=== PATIENT | female | born 1945 | race Caucasian/White ===

== ENCOUNTER → 2017-01-29 | Outpatient (CLI) | payer OTHER ==
[~2017-01-29] MED LIST: ATROPINE SULFATE 0.1 MG/ML 5ML SYR ONE; DOBUTamine HCL 12.5 MG/ML 20 ML VIAL ONE; METOPROLOL TARTRATE 1 MG/ML VIAL ONE; PERFLUTREN LIPID MICROSPHERE (DEFINITY) IV ONE
--- NOTE | 2017-01-29 12:04 | NUR ---
CPL: DOBUTAMINE STRESS ECHO COMPLETED WITH DR FARRAR AT BEDSIDE, THR REACHED AND PATIENT TOLERATED WELL, DOBUTAMINE TITRATED STARTING AT 10 MCG/KG/MIN AND MAX REACHED OF 50 MCG/KG/MIN, LOPRESSOR 5 MG IV GIVEN AT 1149 FOR HR OF 130 AND B/P OF 125/47
--- NOTE | 2017-01-29 16:02 | DOBUTAMINE ECHO ---
*NOTICE TO RECEIVING REPUBLICAN AGENCY This information is strictly Confidential and protected under [place] law. [place] law prohibits you from making any further disclosure of this information unless further disclosure is expressly permitted by the written consent of the person to whom it pertains or is authorized by law. A general authorization for the release of medical or other information is not sufficient for this purpose. Hospital accepts no responsibility if the information is made available to any other person, INCLUDING THE PATIENT. Interpretation Summary * Name: LESIA KHAN Study Date: 01/29/2017 09:20 AM BP: 126/61 mmHg * Patient Location: [facility] HR: 60 * : 1945 (M/d/yyyy) Gender: Female Height: 61 in * Age: 71 yrs Ethnicity: [place] Weight: 152 lb * Ordering Physician: Jc Sharpe * Referring Physician: Jc Sharpe * Performed By: Mariama Das RCS * * Reason For Study: OK, Dyspnea * BSA: 1.7 m2 * -- Conclusions -- * Nonischemic dobutamine stress echocardiogram. * No arrhythmias. * Normal HR and BP response to dobutamine infusion. * At rest, normal LV chamber size with borderline concentric LVH. * Normal LV systolic function, EF 60-65%. * No segmental left ventricular wall motion abnormalities are noted. * Grade II diastolic dysfunction. * Aortic valve sclerosis mild, without significant aortic valvular stenosis. * Moderate mitral annular calcification with significant focal posterior calcification. * Mild left atrial enlargement. Procedure Details * DOBUTAMINE ECHO, CPT#05931 * ECHO COLOR FLOW, CPT #[id number] * ECHO DOPPLER, CPT #[id number] * A contrast injection of Definity was performed to improve assessment of LV function. * Contrast was injected into an intravenous site in the right arm. * One vial of Definity ultrasound contrast was diluted in normal saline to a total volume of 10 ml. A total of '5' ml of solution was administered during imaging. * Lot # [id number] of Definity utilized for procedure. * Expiration date EB. * The attending nurse who injected the contrast agent was Tan Mackay RN. Left Ventricle * The left ventricle is normal in size. * There is borderline concentric left ventricular hypertrophy. * Ejection Fraction = 60-65%. * Left ventricular systolic function is normal. * No segmental left ventricular wall motion abnormalities are noted. * Resting wall motion: Normal. Stress wall motion: Appropriate increase in Left ventricular systolic function and decrease in cavity size. No stress induced segmental wall motion abnormalities. Right Ventricle * The right ventricular cavity size is normal (basal dimension <4.2 cm in right ventricular apical 4-chamber view). * The right ventricular systolic function is normal as assessed by tricuspid annular plane systolic excursion (TAPSE) (normal >1.5 cm). Atria * The left atrium is mildly dilated. * Right atrial size is normal. * No ASD detected; PFO is not assessed. Mitral Valve * There is moderate mitral annular calcification. * There is no mitral valve stenosis. * There is mild mitral regurgitation. Tricuspid Valve * The tricuspid valve is normal in structure and function. Aortic Valve * The aortic valve is trileaflet. * Aortic valve sclerosis mild, without significant aortic valvular stenosis. * There is no significant aortic regurgitation. Pulmonic Valve * The pulmonary valve is not well seen, but the Doppler examination is normal without significant regurgitation or stenosis. Great Vessels * The aortic root and proximal ascending aorta are normal sized. Pericardium * There is no pericardial effusion. Stress Parameters * Normal baseline electrocardiogram. * Stress ECG: No ST changes. No arrhythmias. * No arrhythmia were noted with stress. * The stress portion of this study was personally supervised by the undersigned interpreting physician. * Rest heart rate was '60' BPM. * Rest blood pressure was '126/61' * Maximum heart rate achieved was 130 bpm. * Maximum heart rate was 88 % of maximum age-predicted heart rate. * Maximum blood pressure was '150/49' * Maximum Dobutamine infusion rate was '50' mcg/kg/min. * A total of .5 mg of intravenous Atropine was used to supplement Dobutamine for heart rate response. * Dobutamine infusion was terminated due to achieving target heart rate * A total of 5 mg of IV Metoprolol was administered to reverse Dobutamine-induced tachycardia. * The patient did not exhibit any symptoms during drug infusion. * Normal blood pressure response to exercise. Left Ventricular Diastolic Function * Diastolic dysfunction, Grade II (pseudonormalization pattern). MMode 2D Measurements and Calculations IVSd 0.99 cm IVSs 1.4 cm LVIDd 4.1 cm LVIDs 2.7 cm LVPWd 1.0 cm LVPWs 1.3 cm IVS/LVPW 0.96 FS 33.5 % EDV(Teich) 73.8 ml ESV(Teich) 27.5 ml EF(Teich) 62.7 % EDV(cubed) 68.4 ml ESV(cubed) 20.1 ml EF(cubed) 70.6 % % IVS thick 43.0 % % LVPW thick 23.2 % LV mass(C)d 134.7 grams LV mass(C)dI 80.2 grams/m\S\2 LV mass(C)s 116.6 grams LV mass(C)sI 69.3 grams/m\S\2 SV(Teich) 46.3 ml SI(Teich) 27.5 ml/m\S\2 SV(cubed) 48.3 ml SI(cubed) 28.7 ml/m\S\2 Ao root diam 2.9 cm Ao root area 6.5 cm\S\2 ACS 1.7 cm LA dimension 4.2 cm asc Aorta Diam 2.6 cm LA/Ao 1.5 EDV(MOD-sp4) 58.0 ml ESV(MOD-sp4) 23.0 ml EF(MOD-sp4) 60.3 % EDV(MOD-sp2) 94.0 ml ESV(MOD-sp2) 46.0 ml EF(MOD-sp2) 51.1 % SV(MOD-sp4) 35.0 ml SI(MOD-sp4) 20.8 ml/m\S\2 SV(MOD-sp2) 48.0 ml SI(MOD-sp2) 28.6 ml/m\S\2 Doppler Measurements and Calculations MV E max sarai 102.7 cm/sec MV A max sarai 61.9 cm/sec MV E/A 1.7 MV P1/2t max sarai 102.2 cm/sec MV P1/2t 75.1 msec MVA(P1/2t) 2.9 cm\S\2 MV dec slope 398.6 cm/sec\S\2 MV dec time 0.25 sec Ao V2 max 105.5 cm/sec Ao max PG 4.4 mmHg Ao max PG (full) 1.8 mmHg LV V1 max PG 2.6 mmHg LV V1 max 80.8 cm/sec PA V2 max 68.2 cm/sec PA max PG 1.9 mmHg TR max sarai 176.8 cm/sec
== END | disposition home or self-care (01) ==
LOC: C.CPL 09:12
PROVIDERS: ATTEND Internal Medicine Cardiovascular Disease
DX: I25.2 Old myocardial infarction (principal); E78.5 Hyperlipidemia, unspecified; R06.09 Other forms of dyspnea

== ENCOUNTER 2018-07-19 10:08 | Inpatient (IN) ==
--- OUTSIDE RECORDS SUMMARY | 2018-07-19 10:10 | External Medical Summary | Continuity of Care Document ---
:1945 Author Name Eduardo Ortez Address Unavailable Unavailable , Care Team Providers Name Role Phone Aakash Ortez Unavailable [email or web address] Abdi Unavailable Unavailable Problems Active medical history not documented Allergies and Adverse Reactions Allergy history not documented Medications Medications not documented Procedures Procedures not documented Immunizations Immunizations not documented Plan of Treatment Planned Observations Planned Goals not documented Results No Known Results Results not documented
[2018-07-19] MEDS ORDERED: SODIUM CHLORIDE 0.9% 500 ML IV ONE (10:29)
[2018-07-19] MEDS ORDERED: ONDANSETRON INJ 2 MG/ML 2 ML VIAL IV STA (10:33)
[2018-07-19] MEDS ORDERED: FAMOTIDINE 20MG IV PUSH 20 MG/5 ML SYR IV STA (10:33)
[2018-07-19 10:43] LABS: Basophils # (auto) 0.02 K/uL (0-0.2); Basophils % (auto) 0.3 %; Hematocrit (blood only) 40.2 % (37-47); Hemoglobin 14.1 g/dL (12.0-16.0); Immature Granulocytes # (auto) 0.02 K/uL (0.00-0.02); Immature Granulocytes % (auto) 0.3 %; Lymphocytes # (auto) 0.65 K/uL (1.2-3.4); Lymphocytes % (auto) 8.5 %; Mean Corpuscular Hgb Conc 35.1 g/dL (32-36); Mean Corpuscular Volume 91.8 fL (80-100); Mean Platelet Volume 9.6 fL (7.4-10.4); Monocytes # (auto) 0.51 K/uL (0.11-0.59); Monocytes % (auto) 6.7 %; Neutrophils # (auto) 6.43 K/uL (1.4-6.5); Neutrophils % (auto) 84.2 %; Platelet Count 131 K/uL (130-400); RDW Coefficient of Variation 12.9 % (11.5-14.5); RDW Standard Deviation 43.2 fL (36.4-46.3); Red Blood Count 4.38 M/uL (4.2-5.4); White Blood Count 7.63 K/uL (4.8-10.8)
--- NOTE | 2018-07-19 10:58 | XRay Report ---
XR chest 1V portable CLINICAL HISTORY: 72 years-old Female presenting with Chest Pain, nausea vomiting and diarrhea. TECHNIQUE: Portable upright AP view of the chest was obtained. COMPARISON: None. FINDINGS: Atherosclerosis of the aortic arch. Cardiac silhouette normal in size. Mitral annular calcification n oted. Heterogeneous lung markings with relative radiolucency of the upper lobes. Mild hyperinflation. No focal lung opacity. No large effusion or pneumothorax. Osseous structures normal. Upper abdomen n ormal. IMPRESSION: 1. Findings suggest emphysema. No focal infiltrate to suggest pneumonia. Electronically signed by: Rusty Lutz M.D. 07/19/2018 10:57 AM
[2018-07-19 10:59] LABS: INR 1.2 (0.9-1.1); Prothrombin Time 11.8 Seconds (9.0-12.0)
[2018-07-19 11:02] LABS: Alanine Aminotransferase 33 U/L (12-78); Albumin Level 3.4 gm/dl (3.4-5.0); Aspartate Aminotransferase 44 U/L (15-37); BUN Creatinine Ratio 12.6 (10-20); Bilirubin Direct < 0.1 mg/dl (0-0.2); Blood Urea Nitrogen 16 mg/dl (7-18); Calcium 8.9 mg/dl (8.5-10.1); Carbon Dioxide 24 mmol/L (21-32); Chloride 98 mmol/L (98-107); Est GFR (African American) 48.6; Est GFR (Non-African American) 41.9; Glucose 115 mg/dl (70-99); Magnesium 1.4 mg/dl (1.8-2.4); Potassium 3.4 mmol/L (3.5-5.1); Sodium 130 mmol/L (136-145)
[2018-07-19 11:05] LABS: Albumin Globulin Ratio 0.8 (0.9-2); Alkaline Phosphatase 67 U/L (45-117); Bilirubin,Total 0.4 mg/dl (0.2-1); Globulin 4.2 gm/dl (2.5-4.0); Phosphorus 2.2 mg/dl (2.5-4.9); Total Protein 7.6 gm/dl (6.4-8.2); Troponin I 0.042 ng/ml (0-0.045)
[2018-07-19] MEDS ORDERED: POTASSIUM PHOS 3 MMOL/1 ML INFUSION IV STA (11:45)
[2018-07-19] MEDS ORDERED: POTASSIUM PHOSPHATE 6 MMOL in 0.9 % SODIUM CHLORIDE 100 ML IV ONE (12:00)
[2018-07-19] MEDS ORDERED: IOVERSOL 100ml IV PRN (12:32)
[2018-07-19 12:33] LABS: Appearance Urine Clear (Clear); Bacteria Urine Automated Negative (Negative); Bilirubin Urine Negative (Negative); Blood Urine Trace (Negative); Color Urine Yellow; Epithelial Cell Urine Auto 20-30 /lpf (0-5); Glucose Urine UA Negative (Negative); Ketones Urine Negative (Negative); Leukocyte Esterase Urine Negative (Negative); Nitrite Urine Negative (Negative); Protein Urine 1+ (Negative); RBC Urine Automated 0-4 /hpf (0-4); Urobilinogen Urine Negative (Negative)
--- NOTE | 2018-07-19 12:55 | CT Scan Report ---
ABDOMEN AND PELVIS CT WITH IV CONTRAST CT DOSE: 347.38 mGy.cm HISTORY: Acute abdominal pain with nausea and vomiting n/v/d, abd pain TECHNIQUE: Multiaxial CT images of the abdomen and pelvis were performed following the use of intrave nous contrast. A dose lowering technique was utilized adhering to the principles of ALARA. COMPARISON STUDY: Chest radiograph of same day. FINDINGS: Respiratory motion artifact limits evaluation of the lung bases. Subsegmental tree-in-bud nodules of the right middle lobe are suggestive of a nonspecific infectious or inflammatory bronchiolitis. No pn eumatosis or pneumoperitoneum. Imaged inferior cardiac chambers are unremarkable. Dense mitral annula r calcifications are noted. Gallbladder is unremarkable. Spleen, liver, pancreas and adrenal glands are unremarkable. Bilateral r enal cysts are noted measuring up to 1.4 cm on the left. Mild nonspecific right greater than left per inephric stranding. No renal or ureteral calculi or obstructive uropathy. Mild cortical scarring and thinning of the medial inferior pole right kidney. Mild wall thickening of the urinary bladder with m ild perivesicular stranding. Prior hysterectomy. No adnexal mass lesions. Mixed plaque formation of t he abdominal aorta without aneurysm. IVC is unremarkable. Nonspecific mildly enlarged periportal and precaval lymph nodes. Small hiatal hernia. No bowel obstruction or focal bowel wall thickening. Colonic diverticulosis with out acute diverticulitis. Terminal ileum and visualized appendix appear unremarkable. No ascites or m esenteric inflammation. Demineralized appearance of the bones. Multilevel facet arthrosis with spondy litic spurring. Levoscoliosis of the lumbar spine. Severe degenerative changes about the left hip. Be nign-appearing 11 mm lucent lesion with peripheral cortication about the right femoral neck. IMPRESSION: 1. Mild urinary bladder wall thickening with perivesicular stranding. Correlate with urinalysis to ex clude cystitis. 2. No bowel obstruction or focal bowel wall thickening. 3. Colonic diverticulosis without acute diverticulitis. 4. Small hiatal hernia. 5. Additional findings as above. Electronically signed by: Du Massey M.D. 07/19/2018 12:54 PM
[2018-07-19] MEDS ORDERED: POTASSIUM CHLORIDE PWD 20 MEQ PACK PO STA (13:06)
--- NOTE | 2018-07-19 13:41 | History & Physical Report ---
Date of Service July 19, 2018 Assessment & Plan (1) Metabolic encephalopathy: (2) Dehydration: (3) Weakness: This is a 72-year-old female who has a significant PMH of CAD, HTN, HLD, CKD stage III, hypothyroidism, COPD, osteoporosis, chronic low back pain who presents to [facility] secondary to joint aches, weakness, nausea, vomiting for 3 days. In ED pt CBC unremarkable except low normal plt 131, BMP significant for Na 130, K 3.4, Cr 1.26, phos 2.2 and mag 1.[address] abd/pelvis not significant for any acute abnormality, there was question of a mild urinary bladder wall thickening with perivesicular stranding but urine appears negative for infection In ED patient received IV fluid bolus, potassium chloride 40 M EQ, K-Phos, 2 g mag IV, IV Zofran and Pepcid Pt sx probably in setting of acute dehydration and symptomatic hyponatremia Cause of acute dehydration unknown as pt was in her normal state of health 3 days ago: ? viral illness, lyme/anaplasma, does not appear to be infection, no s/sx of sepsis admit to med/surg IVF NS with KCL 100cc/hr repeat bmp/mag at 6pm replace electrolytes as necessary check lyme/anaplasma titer, peripheral smear IV doxycyline 100mg bid empirically x 48hrs until initial lyme/anaplasma return urine culture pt/ot consulted (4) Acute hyponatremia: serum na 130 likely hypovolemic check urine osm, serum osm, urine na bmp at 1800 continue IVF 100cc/hr (5) Electrolyte abnormality: replace as necessary repleted in ED repeat mag, bmp at 1800 (6) CKD (chronic kidney disease) stage 3, GFR 30-59 ml/min: Baseline creatinine 1.2 BUN/creatinine 16 and 1.26 Repeat BMP at 1800 (7) CAD (coronary artery disease): No acute chest pain or shortness of breath Continue metoprolol, ASA Hold Praluent -daughter notes recent increase to 150 mg SQ [id number] 1 month ago (8) HTN (hypertension): Blood pressure stable Continue metoprolol but hold HCTZ (9) HLD (hyperlipidemia): Hold Praluent -daughter notes recent increase to 150 mg SQ [id number] 1 month ago (10) Hypothyroidism: 07/08 TSH was 5.62, T4 normal at 1.22 Continue levothyroxine (11) COPD (chronic obstructive pulmonary disease) with emphysema: No signs or symptoms of acute exacerbation Patient is not on any inhaled steroid or LABA/BENJI (12) Depression with anxiety: Continue Effexor and Xanax mood stable (13) DVT prophylaxis: Heparin SQ q12hr Disposition: to be determined, case management consulted Follow up: PCP Dr. Sharpe upon discharge Patient was seen and examined in collaboration with Dr. Serna, please see addendum History of Present Illness Chief Complaint: joint aches, n/v, abdominal pain x 3 days. Primary Care Provider: Kavita Sharpe, DO This is a 72-year-old female who has a significant PMH of CAD, HTN, HLD, CKD stage III, hypothyroidism, COPD, osteoporosis, chronic low back pain who presents to [facility] secondary to joint aches, weakness, nausea, vomiting for 3 days. Daughter at bedside. Symptoms started Wednesday after patient attended a picnic. She is otherwise been her normal state of health. Symptoms initially started with joint ache, fatigue, malaise, generalized weakness, nausea, emesis x2, generalized abdominal ache off-and-on. She had one episode of diarrhea yesterday. Symptoms persisted therefore daughter brought patient to ED for evaluation. No known sick contacts. She did not eat any bad food. Denies fever, chills, sweats but otherwise feels cold more than usual. Denies lightheadedness, dizziness, upper respiratory symptoms, cough, chest pain, shortness of breath, palpitations, hemoptysis, hematemesis, dysuria, increased urgency or frequency with urination, hematuria, melena, brando tochezia. Over the past 2 to 3 days her appetite has been poor with significantly decreased p.o. intake. She did not take any of her medications today. Never had anything like this in the past. [place] denies any known tick or insect bites. No rashes. Daughter also feels she has been more confused today. Allergies Allergy/AdvReac Type Severity Reaction Status Date / Time atorvastatin [From Lipitor] Allergy Rash Unverified 07/19/18 10:46 Cephalosporins Allergy Vomiting Unverified 07/19/18 10:46 meloxicam Allergy Rash Unverified 07/19/18 10:46 moxifloxacin [From Avelox] Allergy Rash Unverified 07/19/18 10:46 oxycodone Allergy Rash Unverified 07/19/18 10:46 pravastatin [From Pravachol] Allergy Muscle Pain Unverified 07/19/18 10:46 tramadol [From Ultram] Allergy Rash Unverified 07/19/18 10:46 STREPTOKINASE PORK HEPARIN Allergy Unknown Unknown Uncoded 07/19/18 10:46 AUGMENTIN AdvReac Unknown VOMITING Uncoded 02/07/04 11:00 Home Medications Home Medications Medication Instructions Recorded Confirmed Type alirocumab [Praluent Pen] 150 mg SUBCUT . DIRECTED 07/19/18 07/19/18 History alprazolam 0.25 mg PO BID 07/19/18 07/19/18 History ascorbic acid (vitamin C) [Vitamin 1,000 mg PO DAILY 07/19/18 07/19/18 History C] aspirin [Aspirin Low Dose] 81 mg PO DAILY 07/19/18 07/19/18 History cholecalciferol (vitamin D3) 2,000 unit PO DAILY 07/19/18 07/19/18 History [Vitamin D3] clotrimazole [Lotrimin AF] 1 applic TOPICAL BID 07/19/18 07/19/18 History cyclosporine [Restasis] 1 drp OPHTHALMIC (EYE) BID 07/19/18 07/19/18 History hydrochlorothiazide 25 mg PO DAILY 07/19/18 07/19/18 History levothyroxine [Levoxyl] 75 mcg PO DAILY 07/19/18 07/19/18 History metoprolol tartrate 50 mg PO BID 07/19/18 07/19/18 History multivitamin 1 tab PO DAILY 07/19/18 07/19/18 History nitroglycerin 0.4 mg SUBLINGUAL UD 07/19/18 07/19/18 History venlafaxine 37.5 mg PO DAILY 07/19/18 07/19/18 History Past Med/Surg History Medical History HTN (hypertension) (Chronic) HLD (hyperlipidemia) (Chronic) CAD (coronary artery disease) (Chronic) Hypothyroidism (Chronic) CKD (chronic kidney disease) stage 3, GFR 30-59 ml/min (Chronic) Osteoporosis (Chronic) Osteoarthritis (Chronic) COPD (chronic obstructive pulmonary disease) with emphysema (Chronic) History of hysterectomy (Chronic) Cardiac disease (Acute) Surgical History History of cardiac cath (Chronic) History of arthroscopy of left knee (Chronic) History of tonsillectomy and adenoidectomy (Chronic) Family History Mother , age a67 Coronary heart disease Father , 72 of unknown cause Aunt Breast cancer Social History Preferred Language: Japanese Communication Ability: Effective Director General Required: No Beliefs That Will Affect Care: None marital status: Current Living Situation: Spouse current occupational status: retired current occupation: Personal care worker Other Information That Helps Us Care for You: No Feels Safe at Home: Yes Safety Concerns: Feels Safe At This Time Smoking Status: Former smoker packs per day: 0.5 Years Smoked: 40 Cigarettes Per Day: 10 Do You Dip or Chew Tobacco: No Smoking End Date: 10 years ago Hx Alcohol Use: No Hx Substance Use: No Review of Systems Review of Systems: As noted per HPI, 10 systems reviewed and negative unless noted above. Physical Exam Physical Exam: Gen: WD/WN,F, appears acute ill, alert and oriented but slower to respond, NAD, sitting up in bed, pleasant, conversing easily Head: Normocephalic, Atraumatic Eyes: Sclera normal, no conjunctival injection, PERRLA, EOMI ENT: Gross hearing intact, normal pharynx, mucous membranes dry Neck: supple, no adenopathy, No JVD, no bruit, Resp: Clear to auscultation b/l, no wheeze, rales, rhonchi. Normal insp/exp effort, no accessory muscle use CV: tachycardic rate, regular rhythm, no murmur, rub, gallop, or ectopy Abd: +BS x 4, soft, nontender, nondistended Musculoskeletal: moves extremities active rom x 4, strength intact, good osd clerk strength Extremities: No edema bilaterally Skin: warm, moist, no rash, negative turgor, cap refill < 2sec Neuro: Alert and oriented x 3 but slower to respond questions, speech normal, good mood/affect, cran nerve 2-12 intact grossly : deferred Results & Data Vital Signs (Past 12 Hours) Vital Signs Temp Pulse Pulse Resp BP BP Pulse Ox 07/19/18 13:13 104 H 22 130/76 93 07/19/18 12:40 102 H 23 139/61 97 07/19/18 11:10 101 H 25 H 109/52 L 94 07/19/18 10:50 105 H 19 108/58 L 96 07/19/18 10:26 96 07/19/18 10:17 36.9 C 65 16 123/74 93 Laboratory Results Short CBC 07/19/18 Range/Units 10:36 WBC 7.63 (4.8-10.8) K/uL Hgb 14.1 (12.0-16.0) g/dL Hct 40.2 (37-47) % Plt Count 131 (130-400) K/uL BMP 07/19/18 10:36 Sodium 130 L Potassium 3.4 L Chloride 98 Carbon Dioxide 24 BUN 16 Creatinine 1.26 H Glucose 115 H Calcium 8.9 Cardiac Enzymes 07/19/18 Range/Units 10:36 Troponin I 0.042 (0-0.045) ng/ml Liver Function 07/19/18 Range/Units 10:36 Total Bilirubin 0.4 (0.2-1) mg/dl Direct Bilirubin < 0.1 (0-0.2) mg/dl AST 44 H (15-37) U/L ALT 33 (12-78) U/L Alkaline Phosphatase 67 (45-117) U/L Albumin 3.4 (3.4-5.0) gm/dl Urine 07/19/18 Range/Units 12:06 Urine Color Yellow Urine Appearance Clear (Clear) Urine pH 7.0 (4.5-7.5) Ur Specific [place] 1.010 (1.000-1.030) Urine Protein 1+ H (Negative) Urine Glucose (UA) Negative (Negative) Diagnostic Findings CT abd/pelvis IMPRESSION: 1. Mild urinary bladder wall thickening with perivesicular stranding. Correlate with urinalysis to exclude cystitis. 2. No bowel obstruction or focal bowel wall thickening. 3. Colonic diverticulosis without acute diverticulitis. 4. Small hiatal hernia. 5. Additional findings as above. CXR: IMPRESSION: 1. Findings suggest emphysema. No focal infiltrate to suggest pneumonia. Medications Administered Ioversol (Optiray 320 100ml) 94 ml IV ONCE PRN PRN Reason: Interaction Checking Stop: 07/23/18 12:31 Last Admin: 07/19/18 12:33 Dose: 94 ml Documented by: [id number] Discontinued Medications Sodium Chloride (Nss) 500 mls @ 999 mls/hr IV .Q31M ONE Stop: 07/19/18 10:59 Last Infusion: 07/19/18 11:51 Dose: 0 mls/hr Documented by: [id number] Admin: 07/19/18 11:18 Dose: 999 mls/hr Documented by: [id number] Famotidine (Pepcid 20mg Iv Push) 20 mg in 5 mls @ 2.5 mls/min IV NOW STA Stop: 07/19/18 10:34 Last Admin: 07/19/18 11:19 Dose: 2.5 mls/min Documented by: [id number] Potassium Phosphate 6 mmol/ (Sodium Chloride) 102 mls @ 102 mls/hr IV ONE ONE Stop: 07/19/18 12:59 Last Admin: 07/19/18 12:37 Dose: 102 mls/hr Documented by: [id number] Ondansetron HCl (Zofran) 4 mg IV NOW STA Stop: 07/19/18 10:34 Last Admin: 07/19/18 11:19 Dose: 4 mg Documented by: [id number] Code Status & VTE Plan Code Status Full Code VTE Prophylaxis Plan VTE Prophylaxis will be ordered: Yes Supervising Physician Co-Signing Physician Notes Attending addendum: Patient seen and examined, care coordinated with Carrie Sprague PA-C This is a 72-year-old female with past medical history of hyperlipidemiastatin intolerance, hypertension, hypothyroidism, COPD, CKD stage III, coronary artery disease Brought to ER by her daughter-as patient was experiencing increased fatigue, weakness, very poor p.o. intake, confusion for the past 2 to 3 days Episode of loose bowel movement (small amount)'s morning Labs showed electrolyte imbalance, notably hyponatremia sodium 134, hypokalemia, low magnesium No reported fever or chills, no nausea vomiting or abdominal pain Denies of any recent tick bite Mild tachycardia noted, patient is afebrile, blood pressure stable Will be admitted to medical telemetry, IV fluids, electrolyte replaced, repeat lab ordered Ordered for Lyme titer, testing for anaplasmosis PT OT evaluation for generalized weakness Please refer to further documentation by Carrie Sprague for discussion of other chronic issues Sol Serna MD
[2018-07-19] MEDS ORDERED: METOPROLOL TARTRATE 50 MG TAB PO STA (14:01)
[2018-07-19] MEDS: MAGNESIUM SULFATE / D5W 1 GM/100 ML BAG IV SCH ×2 (14:18→18:30)
[2018-07-19 15:23] LABS: Lyme Ab IgG w/WB Rflx Negative (Negative); Lyme Ab IgM w/WB Rflx Negative (Negative)
[2018-07-19] MEDS ORDERED: ONDANSETRON INJ 2 MG/ML 2 ML VIAL IV PRN (15:58)
[2018-07-19] MEDS ORDERED: ACETAMINOPHEN 325 MG TAB PO PRN (15:58)
[2018-07-19] MEDS ORDERED: MAGNESIUM HYDROXIDE SUSP 30 ML UDC PO PRN (15:58)
[2018-07-19] MEDS ORDERED: NITROGLYCERIN SL 0.4 MG/TAB TAB SL SCH (15:58)
[2018-07-19] MEDS ORDERED: NITROGLYCERIN SL 0.4 MG/TAB TAB SL PRN (15:58)
[2018-07-19] MEDS ORDERED: ALUMINUM/MAGNESIUM SUSP 30 ML UDC PO PRN (15:58)
[2018-07-19] MEDS: DOXYCYCLINE HYCLATE 100 MG in DEXTROSE 5% 100 ML IV SCH (16:26)
[2018-07-19] MEDS: NSS + 20MEQ KCL 20 MEQ/1,000 ML BAG IV SCH (16:26)
--- NOTE | 2018-07-19 16:59 | Emergency Department Note ---
Entered by Juanita Sargent acting as a scribe for History of Present Illness General Chief complaint: Weakness Stated complaint: VOMITING,WEAKNESS,NOT EATING Time Seen by Provider: 07/19/18 10:20 Source: patient and family History of Present Illness Provider complaint: nausea and vomiting Onset (ago): day(s) 2 Location: left and right Maximum Pain Intensity: 5 Quality: + other (nausea and vomiting) Associated symptoms: + cough, + fever/chills (chills), + weakness and + other (diarrhea); no chest pain and no shortness of breath The patient is a 72 year old female who presents to the Emergency Department with complaints of nausea and vomiting over the last 2 days. She reports having chills and a cough but denies having chest pain and shortness of breath. The patient also reports having some diarrhea. She states that she did vomit once today. She states that she has not been able to eat anything as she has "just not been hungry." Her family states that the patient has been very weak and has not been eating or drinking. Her family states that she gave the patient something to calm her stomach 2 days ago but states that this also made the patient sick. The patient denies a history of abdominal surgeries. Per family, the patient has been unable to take her medications. The patient had a negative dobutamine stress echo done on 2016. Home Medications Home Medications Medication Instructions Recorded Confirmed Type alirocumab [Praluent Pen] 150 mg SUBCUT . DIRECTED 07/19/18 07/19/18 History alprazolam 0.25 mg PO BID 07/19/18 07/19/18 History ascorbic acid (vitamin C) [Vitamin 1,000 mg PO DAILY 07/19/18 07/19/18 History C] aspirin [Aspirin Low Dose] 81 mg PO DAILY 07/19/18 07/19/18 History cholecalciferol (vitamin D3) 2,000 unit PO DAILY 07/19/18 07/19/18 History [Vitamin D3] clotrimazole [Lotrimin AF] 1 applic TOPICAL BID 07/19/18 07/19/18 History cyclosporine [Restasis] 1 drp OPHTHALMIC (EYE) BID 07/19/18 07/19/18 History hydrochlorothiazide 25 mg PO DAILY 07/19/18 07/19/18 History levothyroxine [Levoxyl] 75 mcg PO DAILY 07/19/18 07/19/18 History metoprolol tartrate 50 mg PO BID 07/19/18 07/19/18 History multivitamin 1 tab PO DAILY 07/19/18 07/19/18 History nitroglycerin 0.4 mg SUBLINGUAL UD 07/19/18 07/19/18 History venlafaxine 37.5 mg PO DAILY 07/19/18 07/19/18 History Allergies Allergy/AdvReac Type Severity Reaction Status Date / Time atorvastatin [From Lipitor] Allergy Rash Unverified 07/19/18 10:46 Cephalosporins Allergy Vomiting Unverified 07/19/18 10:46 meloxicam Allergy Rash Unverified 07/19/18 10:46 moxifloxacin [From Avelox] Allergy Rash Unverified 07/19/18 10:46 oxycodone Allergy Rash Unverified 07/19/18 10:46 pravastatin [From Pravachol] Allergy Muscle Pain Unverified 07/19/18 10:46 tramadol [From Ultram] Allergy Rash Unverified 07/19/18 10:46 STREPTOKINASE PORK HEPARIN Allergy Unknown Unknown Uncoded 07/19/18 10:46 AUGMENTIN AdvReac Unknown VOMITING Uncoded 02/07/04 11:00 Past Med/Surg History Medical History HTN (hypertension) (Chronic) HLD (hyperlipidemia) (Chronic) CAD (coronary artery disease) (Chronic) Hypothyroidism (Chronic) CKD (chronic kidney disease) stage 3, GFR 30-59 ml/min (Chronic) Osteoporosis (Chronic) Osteoarthritis (Chronic) COPD (chronic obstructive pulmonary disease) with emphysema (Chronic) History of hysterectomy (Chronic) Cardiac disease (Acute) Surgical History History of cardiac cath (Chronic) History of arthroscopy of left knee (Chronic) History of tonsillectomy and adenoidectomy (Chronic) Family History Mother , age a67 Coronary heart disease Father , 72 of unknown cause Aunt Breast cancer Social History Preferred Language: Moldovan Communication Ability: Effective Rn Traveling Required: No Beliefs That Will Affect Care: None marital status: Current Living Situation: Spouse current occupational status: retired current occupation: Personal care worker Other Information That Helps Us Care for You: No Feels Safe at Home: Yes Safety Concerns: Feels Safe At This Time Smoking Status: Former smoker packs per day: 0.5 Years Smoked: 40 Cigarettes Per Day: 10 Do You Dip or Chew Tobacco: No Smoking End Date: 10 years ago Hx Alcohol Use: No Hx Substance Use: No Review of Systems See HPI for pertinent positives & negatives. and A total of 10 systems reviewed and were otherwise negative Physical Exam Vital Signs Vital Signs - 24 hr 07/19/18 10:17 07/19/18 10:26 07/19/18 10:50 Temperature 36.9 C Temperature Source Oral Sepsis Recent Fever Within 48 Hours No Sepsis Action Taken by Nursing No Action Required Pulse Rate 65 Pulse Rate [Apical] 105 H Pulse Rhythm [Apical] Irregular Respiratory Rate 16 19 Respiratory Effort / Characteristics Non-Labored Respiratory Depth Normal Respiratory Pattern Blood Pressure 123/74 Blood Pressure [Left Arm] 108/58 L Blood Pressure Mean 90 Blood Pressure Mean [Left Arm] 74 Blood Pressure Position [Left Arm] Sitting Pulse Oximetry 93 96 96 Oxygen Delivery Method Room Air Room Air Room Air 07/19/18 11:10 07/19/18 12:40 07/19/18 13:13 Temperature Temperature Source Sepsis Recent Fever Within 48 Hours Sepsis Action Taken by Nursing Pulse Rate Pulse Rate [Apical] 101 H 102 H 104 H Pulse Rhythm [Apical] Respiratory Rate 25 H 23 22 Respiratory Effort / Characteristics Non-Labored Non-Labored Non-Labored Respiratory Depth Normal Normal Normal Respiratory Pattern Regular Regular Regular Blood Pressure Blood Pressure [Left Arm] 109/52 L 139/61 130/76 Blood Pressure Mean Blood Pressure Mean [Left Arm] 71 87 94 Blood Pressure Position [Left Arm] Pulse Oximetry 94 97 93 Oxygen Delivery Method Room Air Room Air Room Air GENERAL: Awake, alert, fatigued-appearing, in no distress HENT: Normocephalic, atraumatic. Oropharynx with dry mucous membranes and otherwise unremarkable. EYES: Normal conjunctiva. Sclera non-icteric. NECK: Supple. No nuchal rigidity. FROM. No JVD. RESPIRATORY: Clear to auscultation bilaterally. CARDIAC: Regular rate, normal rhythm. Extremities warm and well perfused. Pulses equal. ABDOMEN: Soft, non-distended. No tenderness to palpation. No rebound or gu arding. No masses. RECTAL: Deferred. MUSCULOSKELETAL: Chest examination reveals no tenderness. The back is symmetrical on inspection without obvious abnormality. There is no CVA tenderness to palpation. No joint edema. LOWER EXTREMITIES: Calves are equal size bilaterally and non-tender. No edema. No discoloration. NEURO: Normal sensorium. No sensory or motor deficits noted. SKIN: No rash or jaundice noted. Course 1021: The patient was evaluated in room B11B. A history and physical were performed. 1313: I discussed the patient's case with Kaitlynn Dan, admitting to Dr. Serna, who will evaluate the patient for further management. 1321: I updated the patient and her family who verbalized agreement and understanding of the treatment plan. Consultations Consultation #1: Kaitlynn Dan Time: 13:13 Administered Medications Alprazolam (Xanax) 0.25 mg PO BID IZAIAH Stop: 08/18/18 20:59 Last Admin: 07/19/18 21:12 Dose: 0.25 mg Documented by: [id number] Clotrimazole (Lotrimin 1%) 1 appln TOP BID IZAIAH Stop: 08/18/18 20:59 Last Admin: 07/19/18 21:10 Dose: 1 appln Documented by: [id number] Heparin Sodium (Porcine) (Heparin Sodium (Porcine)) 5,000 units SQ Q12 IZAIAH Stop: 08/18/18 20:59 Last Admin: 07/19/18 21:10 Dose: 5,000 units Documented by: [id number] Cosigned by: [id number] Potassium Chloride/Sodium Chloride (Normal Saline W/20 Meq Kcl) 20 meq in 1,000 mls @ 80 mls/hr IV .[id number] IZAIAH Stop: 08/18/18 16:14 Last Admin: 07/19/18 16:26 Dose: 80 mls/hr Documented by: [id number] Doxycycline Hyclate 100 mg/ (Dextrose) 110 mls @ 50 mls/hr IV Q12H IZAIAH; Protocol Stop: 07/21/18 16:59 Last Infusion: 07/19/18 19:35 Dose: 0 mls/hr Documented by: [id number] Admin: 07/19/18 16:26 Dose: 50 mls/hr Documented by: [id number] Ioversol (Optiray 320 100ml) 94 ml IV ONCE PRN PRN Reason: Interaction Checking Stop: 07/23/18 12:31 Last Admin: 07/19/18 12:33 Dose: 94 ml Documented by: [id number] Metoprolol Tartrate (Lopressor) 50 mg PO BID IZAIAH Stop: 08/18/18 20:59 Last Admin: 07/19/18 21:09 Dose: 50 mg Documented by: [id number] Miscellaneous (Order Awaiting Action) 1 ea N/A QS [facility] Stop: 08/19/18 00:00 Last Admin: 07/19/18 22:56 Dose: Not Given Documented by: [id number] Discontinued Medications Sodium Chloride (Nss) 500 mls @ 999 mls/hr IV .Q31M ONE Stop: 07/19/18 10:59 Last Infusion: 07/19/18 11:51 Dose: 0 mls/hr Documented by: [id number] Admin: 07/19/18 11:18 Dose: 999 mls/hr Documented by: [id number] Famotidine (Pepcid 20mg Iv Push) 20 mg in 5 mls @ 2.5 mls/min IV NOW STA Stop: 07/19/18 10:34 Last Admin: 07/19/18 11:19 Dose: 2.5 mls/min Documented by: [id number] Magnesium Sulfate/Dextrose (Magnesium Sulfate / D5w) 1 gm in 100 mls @ 100 mls/hr IV Q1H IZAIAH Stop: 07/19/18 13:44 Last Infusion: 07/19/18 19:35 Dose: 0 mls/hr Documented by: [id number] Admin: 07/19/18 18:30 Dose: 100 mls/hr Documented by: [id number] Infusion: 07/19/18 15:20 Dose: 0 mls/hr Documented by: [id number] Admin: 07/19/18 14:18 Dose: 100 mls/hr Documented by: [id number] Potassium Phosphate 6 mmol/ (Sodium Chloride) 102 mls @ 102 mls/hr IV ONE ONE Stop: 07/19/18 12:59 Last Infusion: 07/19/18 14:27 Dose: 0 mls/hr Documented by: [id number] Admin: 07/19/18 12:37 Dose: 102 mls/hr Documented by: [id number] Metoprolol Tartrate (Lopressor) 50 mg PO NOW STA Stop: 07/19/18 14:02 Last Admin: 07/19/18 16:57 Dose: 50 mg Documented by: [id number] Ondansetron HCl (Zofran) 4 mg IV NOW STA Stop: 07/19/18 10:34 Last Admin: 07/19/18 11:19 Dose: 4 mg Documented by: [id number] Potassium Chloride (Klor-Con Pwd) 40 meq PO NOW STA Stop: 07/19/18 13:07 Last Admin: 07/19/18 14:19 Dose: 40 meq Documented by: [id number] Medical Decision Making Differential Diagnosis Differential includes acute coronary syndrome, myocardial infarction, CVA, TIA, anemia, infection, pneumonia, UTI, pyelonephritis, poor nutrition, dehydration, electrolyte disturbance,hypoglycemia. Medical Records Attestation: I reviewed the patient's medical records. Home Medications Current Medication List: was personally reviewed by me Laboratory Data Attestation: I reviewed the patient's lab results. Result diagrams: 07/19/18 10:36 07/19/18 18:15 Lab Results 07/19/18 07/19/18 07/19/18 Range/Units 10:36 10:36 10:36 WBC 7.63 (4.8-10.8) K/uL RBC 4.38 (4.2-5.4) M/uL Hgb 14.1 (12.0-16.0) g/dL Hct 40.2 (37-47) % MCV 91.8 (80-100) fL MCH 32.2 (25-34) pg MCHC 35.1 (32-36) g/dL RDW Std Deviation 43.2 (36.4-46.3) fL RDW Coeff of Keegan 12.9 (11.5-14.5) % Plt Count 131 (130-400) K/uL MPV 9.6 (7.4-10.4) fL Immature Gran % (Auto) 0.3 % Neut % (Auto) 84.2 % Lymph % (Auto) 8.5 % [place] % (Auto) 6.7 % Eos % (Auto) 0.0 % Baso % (Auto) 0.3 % Immature Gran # (Auto) 0.02 (0.00-0.02) K/uL Neut # (Auto) 6.43 (1.4-6.5) K/uL Lymph # (Auto) 0.65 L (1.2-3.4) K/uL [place] # (Auto) 0.51 (0.11-0.59) K/uL Eos # (Auto) 0.00 (0-0.5) K/uL Baso # (Auto) 0.02 (0-0.2) K/uL Absolute Nucleated RBC 0.00 (0-0) K/uL Nucleated RBC % (auto) 0.0 % PT 11.8 (9.0-12.0) Seconds INR 1.2 H (0.9-1.1) Sodium 130 L (136-145) mmol/L Potassium 3.4 L (3.5-5.1) mmol/L Chloride 98 (98-107) mmol/L Carbon Dioxide 24 (21-32) mmol/L Anion Gap 8.0 (3-11) BUN 16 (7-18) mg/dl Creatinine 1.26 H (0.6-1.2) mg/dl Est Cr Clr Drug Dosing Not Reportable Est GFR ( Amer) 48.6 Est GFR (Non-Af Amer) 41.9 BUN/Creatinine Ratio 12.6 (10-20) Glucose 115 H (70-99) mg/dl Calcium 8.9 (8.5-10.1) mg/dl Phosphorus 2.2 L (2.5-4.9) mg/dl Magnesium 1.4 L (1.8-2.4) mg/dl Total Bilirubin 0.4 (0.2-1) mg/dl Direct Bilirubin < 0.1 (0-0.2) mg/dl AST 44 H (15-37) U/L ALT 33 (12-78) U/L Alkaline Phosphatase 67 (45-117) U/L Troponin I 0.042 (0-0.045) ng/ml Total Protein 7.6 (6.4-8.2) gm/dl Albumin 3.4 (3.4-5.0) gm/dl Globulin 4.2 H (2.5-4.0) gm/dl Albumin/Globulin Ratio 0.8 L (0.9-2) Lipase 154 (73-393) U/L TSH (0.300-4.500) uIu/ml Urine Color Urine Appearance (Clear) Urine pH (4.5-7.5) Ur Specific [place] (1.000-1.030) Urine Protein (Negative) Urine Glucose (UA) (Negative) Urine Ketones (Negative) Urine Blood (Negative) Urine Nitrite (Negative) Urine Bilirubin (Negative) Urine Urobilinogen (Negative) Ur Leukocyte Esterase (Negative) Urine WBC (Auto) (0-5) /hpf Urine RBC (Auto) (0-4) /hpf U Hyaline Cast (Auto) (0-5) /lpf U Epithel Cells (Auto) (0-5) /lpf Urine Bacteria (Auto) (Negative) 07/19/18 07/19/18 Range/Units 10:36 12:06 WBC (4.8-10.8) K/uL RBC (4.2-5.4) M/uL Hgb (12.0-16.0) g/dL Hct (37-47) % MCV (80-100) fL MCH (25-34) pg MCHC (32-36) g/dL RDW Std Deviation (36.4-46.3) fL RDW Coeff of Keegan (11.5-14.5) % Plt Count (130-400) K/uL MPV (7.4-10.4) fL Immature Gran % (Auto) % Neut % (Auto) % Lymph % (Auto) % [place] % (Auto) % Eos % (Auto) % Baso % (Auto) % Immature Gran # (Auto) (0.00-0.02) K/uL Neut # (Auto) (1.4-6.5) K/uL Lymph # (Auto) (1.2-3.4) K/uL [place] # (Auto) (0.11-0.59) K/uL Eos # (Auto) (0-0.5) K/uL Baso # (Auto) (0-0.2) K/uL Absolute Nucleated RBC (0-0) K/uL Nucleated RBC % (auto) % PT (9.0-12.0) Seconds INR (0.9-1.1) Sodium (136-145) mmol/L Potassium (3.5-5.1) mmol/L Chloride (98-107) mmol/L Carbon Dioxide (21-32) mmol/L Anion Gap (3-11) BUN (7-18) mg/dl Creatinine (0.6-1.2) mg/dl Est Cr Clr Drug Dosing Est GFR ( Amer) Est GFR (Non-Af Amer) BUN/Creatinine Ratio (10-20) Glucose (70-99) mg/dl Calcium (8.5-10.1) mg/dl Phosphorus (2.5-4.9) mg/dl Magnesium (1.8-2.4) mg/dl Total Bilirubin (0.2-1) mg/dl Direct Bilirubin (0-0.2) mg/dl AST (15-37) U/L ALT (12-78) U/L Alkaline Phosphatase (45-117) U/L Troponin I (0-0.045) ng/ml Total Protein (6.4-8.2) gm/dl Albumin (3.4-5.0) gm/dl Globulin (2.5-4.0) gm/dl Albumin/Globulin Ratio (0.9-2) Lipase (73-393) U/L TSH 1.800 (0.300-4.500) uIu/ml Urine Color Yellow Urine Appearance Clear (Clear) Urine pH 7.0 (4.5-7.5) Ur Specific [place] 1.010 (1.000-1.030) Urine Protein 1+ H (Negative) Urine Glucose (UA) Negative (Negative) Urine Ketones Negative (Negative) Urine Blood Trace H (Negative) Urine Nitrite Negative (Negative) Urine Bilirubin Negative (Negative) Urine Urobilinogen Negative (Negative) Ur Leukocyte Esterase Negative (Negative) Urine WBC (Auto) 1-5 (0-5) /hpf Urine RBC (Auto) 0-4 (0-4) /hpf U Hyaline Cast (Auto) 1-5 (0-5) /lpf U Epithel Cells (Auto) 20-30 H (0-5) /lpf Urine Bacteria (Auto) Negative (Negative) Imaging Data Radiologist's Impression: Radiology results as stated below per my review and the radiologist's interpretation: XR chest 1V portable CLINICAL HISTORY: 72 years-old Female presenting with Chest Pain, nausea vomiting and diarrhea. TECHNIQUE: Portable upright AP view of the chest was obtained. COMPARISON: None. FINDINGS: Atherosclerosis of the aortic arch. Cardiac silhouette normal in size. Mitral annular calcification noted. Heterogeneous lung markings with relative radiolucency of the upper lobes. Mild hyperinflation. No focal lung opacity. No large effusion or pneumothorax. Osseous structures normal. Upper abdomen normal. IMPRESSION: 1. Findings suggest emphysema. No focal infiltrate to suggest pneumonia. Electronically signed by: Rusty Lutz M.D. 07/19/2018 10:57 AM ABDOMEN AND PELVIS CT WITH IV CONTRAST CT DOSE: 347.38 mGy.cm HISTORY: Acute abdominal pain with nausea and vomiting n/v/d, abd pain TECHNIQUE: Multiaxial CT images of the abdomen and pelvis were performed fo llowing the use of intravenous contrast. A dose lowering technique was utilized adhering to the principles of ALARA. COMPARISON STUDY: Chest radiograph of same day. FINDINGS: Respiratory motion artifact limits evaluation of the lung bases. Subsegmental tree-in-bud nodules of the right middle lobe are suggestive of a nonspecific infectious or inflammatory bronchiolitis. No pneumatosis or pneumoperitoneum. Imaged inferior cardiac chambers are unremarkable. Dense mitral annular calcifications are noted. Gallbladder is unremarkable. Spleen, liver, pancreas and adrenal glands are unremarkable. Bilateral renal cysts are noted measuring up to 1.4 cm on the left. Mild nonspecific right greater than left perinephric stranding. No renal or ureteral calculi or obstructive uropathy. Mild cortical scarring and thinning of the medial inferior pole right kidney. Mild wall thickening of the urinary bladder with mild perivesicular stranding. Prior hysterectomy. No adnexal mass lesions. Mixed plaque formation of the abdominal aorta without aneurysm. IVC is unremarkable. Nonspecific mildly enlarged periportal and precaval lymph nodes. Small hiatal hernia. No bowel obstruction or focal bowel wall thickening. Colonic diverticulosis without acute diverticulitis. Terminal ileum and visualized appendix appear unremarkable. No ascites or mesenteric inflammation. Demineralized appearance of the bones. Multilevel facet arthrosis with spondylitic spurring. Levoscoliosis of the lumbar spine. Severe degenerative changes about the left hip. Benign-appearing 11 mm lucent lesion with peripheral cortication about the right femoral neck. IMPRESSION: 1. Mild urinary bladder wall thickening with perivesicular stranding. Correlate with urinalysis to exclude cystitis. 2. No bowel obstruction or focal bowel wall thickening. 3. Colonic diverticulosis without acute diverticulitis. 4. Small hiatal hernia. 5. Additional findings as above. Electronically signed by: Du Massey M.D. 07/19/2018 12:54 PM ECG Data Attestation: I personally reviewed and interpreted this ECG as follows: Indication: weakness Rate (beats per minute): 100 Rhythm: sinus rhythm Findings: + other (normal axis) and + PVC; no ST depression, no ST elevation and no acute ischemic change Blood Pressure Blood Pressure Findings: Normal blood pressure MDM Narrative The patient is a pleasant 72-year-old woman with a past medical history of CAD, hyperlipidemia, CKD who presents emergency department with generalized weakness in setting of nausea vomiting HPI. Arrival patient is fatigued appearing but no acute distress, afebrile with stable vital signs. Exam the patient appears clinically dry. EKG without overt acute ischemia. Chest x-ray negative for focal infiltrates. WBC, H/H, platelets wnl. Chemistry without acidosis. Mild [place] with creatinine of 1.26 and electric abnormalities including magnesium of 1.4, phosphorus 2.2, potassium 3.4 with repletion provided. Troponin 0.042 within normal limits. LFTs unremarkable. UA negative for infection. CT abdomen pelvis with evidence of possible cystitis however UA negative for infection. Case was discussed with Sy Kumari PA-C who will evaluate the patient for admission. Impression & Plan Hypomagnesemia, Hypokalemia, Hypophosphatemia Critical Care Time Critical Care Time: Yes Total Critical Care Time: 35 I have personally spent greater than 35 minutes of critical care time in the direct management of this patient. This includes bedside care, interpretation of diagnostic studies, and testing, discussion with consultants, patient, and family members, and other required patient management activities. This 35 minutes is in excess of all separately billable procedures. Discharge Plan Visit Data *Final* Discharge Date/Time: 07/19/18 15:22 Chief Complaint: Weakness Stated Complaint: VOMITING,WEAKNESS,NOT EATING ED Provider: Cristopher Mitchell Discharge Problem: Hypomagnesemia, Hypokalemia, Hypophosphatemia Patient Disposition: Admitted As Inpatient Discharge Instructions Interventions: ED Discharge Assessment Last Done: 07/19/18 15:22 The scribe's documentation has been prepared under my direction and personally reviewed by me in its entirety. I confirm that the note above accurately reflects all work, treatment, procedures, and medical decision making performed by me.
[2018-07-19 18:38] LABS: Calcium 8.3 mg/dl (8.5-10.1); Creatinine Clr Calc Pharmacy 39.6 ml/min; Est GFR (African American) 52.6; Est GFR (Non-African American) 45.4; Magnesium 2.1 mg/dl (1.8-2.4); Potassium 3.7 mmol/L (3.5-5.1)
[2018-07-19] MEDS: METOPROLOL TARTRATE 50 MG TAB PO SCH (21:09)
[2018-07-19] MEDS: CLOTRIMAZOLE 1% CR 15 GM TUBE TOP SCH (21:10)
[2018-07-19] MEDS: HEPARIN SOD 5,000 UNIT/0.5 ML VIAL SQ SCH (21:10)
[2018-07-19] MEDS: ALPRAZolam 0.25 MG TABLET PO SCH (21:12)
[2018-07-20] MEDS: NSS + 20MEQ KCL 20 MEQ/1,000 ML BAG IV SCH ×2 (05:50→18:08)
[2018-07-20] MEDS: DOXYCYCLINE HYCLATE 100 MG in DEXTROSE 5% 100 ML IV SCH ×2 (06:00→17:02)
[2018-07-20] MEDS ORDERED: LEVOTHYROXINE SODIUM 75 MCG TABLET PO SCH (06:30)
[2018-07-20 07:21] LABS: INR 1.2 (0.9-1.1); Prothrombin Time 11.9 Seconds (9.0-12.0)
[2018-07-20 07:47] LABS: BUN Creatinine Ratio 11.1 (10-20); Calcium 8.3 mg/dl (8.5-10.1); Creatinine Clr Calc Pharmacy 42.8 ml/min; Est GFR (African American) 57.9; Magnesium 2.4 mg/dl (1.8-2.4)
[2018-07-20] MEDS: HEPARIN SOD 5,000 UNIT/0.5 ML VIAL SQ SCH (08:05)
[2018-07-20] MEDS: CLOTRIMAZOLE 1% CR 15 GM TUBE TOP SCH (08:06)
[2018-07-20] MEDS: METOPROLOL TARTRATE 50 MG TAB PO SCH (08:08)
[2018-07-20] MEDS: ALPRAZolam 0.25 MG TABLET PO SCH (08:13)
[2018-07-20] MEDS ORDERED: ASPIRIN 81 MG ECTAB PO SCH (09:00)
[2018-07-20] MEDS ORDERED: CHOLECALCIFEROL 1,000 UNITS TAB PO SCH (09:00)
[2018-07-20] MEDS ORDERED: VENLAFAXINE HCL XR 37.5 MG CAPXR PO SCH (09:00)
[2018-07-20] MEDS ORDERED: MULTIVITAMIN TAB PO SCH (09:00)
[2018-07-20] MEDS ORDERED: ASCORBIC ACID 500 MG TAB PO SCH (09:00)
--- NOTE | 2018-07-20 17:49 | Hospitalist Progress Note ---
Date of Service July 20, 2018 Assessment & Plan (1) Metabolic encephalopathy: Presented with confusion, increased fatigue and lethargy, Secondary to dehydration, electrolyte derangement: Hypokalemia/low magnesium/hyponatremia No evidence of focal neurological deficit, Mental status improved to approximate baseline with IV fluid resuscitation According to daughter, patient did showed evidence of cognitive/memory decline, forgetfulness for the past few months, Was significantly worsened last 2 days prior to admission, patient could not recall where she is at, Doing much better today than last few weeks Getting more anxious or restless while being in hospital Daughter feels comfortable that patient will do well after returning home Present on Admission?: Yes (2) Dehydration: Due to poor p.o. intake, nausea vomiting, for the last 2 to 3 days Report of small loose bowel movement prior to admission, no bowel movement noted during hospital stay patient given IV fluid resuscitation, Electrolytes deficit (sodium /potassium /mag) corrected Patient reports of improved appetite No GI symptoms patient is counseled repeatedly Patient is counseled repeatedly to keep up with enough fluid intake Present on Admission?: Yes (3) Weakness: This is a 72-year-old female who has a significant PMH of CAD, HTN, HLD, CKD stage III, hypothyroidism, COPD, osteoporosis, chronic low back pain who presents to [facility] secondary to joint aches, weakness, nausea, vomiting for 3 days. In ED pt CBC unremarkable except low normal plt 131, BMP significant for Na 130, K 3.4, Cr 1.26, phos 2.2 and mag 1.[address] abd/pelvis not significant for any acute abnormality, there was question of a mild urinary bladder wall thickening with perivesicular stranding but urine appears negative for infection In ED patient received IV fluid bolus, potassium chloride 40 M EQ, K-Phos, 2 g mag IV, IV Zofran and Pepcid Pt sx probably in setting of acute dehydration and symptomatic hyponatremia Cause of acute dehydration unknown as pt was in her normal state of health 3 days ago: ? viral illness, lyme/anaplasma, does not appear to be infection, no s/sx of sepsis Symptoms significantly improved after IV hydration, correction of electrolytes deficit Lyme titer negative Anaplasmosis serology pending Patient treated with IV doxycycline empirically, Will change to p.o. doxycycline complete total 7 days of course PT OT evaluation requested, appreciate input, recommend rehab Patient refused Wants to return home (4) Acute hyponatremia: serum na 130 Secondary to dehydration, poor p.o. intake and GI loss Sodium level improved with IV hydration, (5) Electrolyte abnormality: Hypomagnesemia, hypokalemia,: Secondary to poor p.o. intake nausea vomiting for last 2 to 3 days replaced, Repeat labs within normal limits (6) CKD (chronic kidney disease) stage 3, GFR 30-59 ml/min: Slight elevation of BUN/creatinine ratio secondary to dehydration Resolved with IV hydration renal function at baseline (7) CAD (coronary artery disease): No acute chest pain or shortness of breath Continue metoprolol, ASA Hold Praluent -daughter notes recent increase to 150 mg SQ [id number] 1 month ago (8) HTN (hypertension): Blood pressure stable On metoprolol, hydrochlorothiazide was On hold on admission in the setting of dehydration Will be resumed on discharge (9) HLD (hyperlipidemia): on Praluent -daughter notes recent increase to 150 mg SQ [id number] 1 month ago Kept on hold during hospital stay, can be resumed on discharge (10) Hypothyroidism: 07/08 TSH was 5.62, T4 normal at 1.22 Continue levothyroxine (11) COPD (chronic obstructive pulmonary disease) with emphysema: No signs or symptoms of acute exacerbation Patient is not on any inhaled steroid or LABA/BENJI (12) Depression with anxiety: Continue Effexor and Xanax mood stable (13) DVT prophylaxis: Heparin SQ q12hr Disposition: Patient is discharged home today, refused home health visiting nurse home PT Follow up: Follow-up with [facility] family physician Dr. Kavita Ng within a week for hospital follow-up Subjective Patient reports of feeling much better today, and awake and alert, no confusion noted, answering questions appropriately was able to get out of bed, sit on the chair, denies of any dizzy spells no lightheadedness, no fever or chills, appetite fair Denies of any loose bowel movement, No abdominal pain no nausea Insist on going home today, getting very restless for being in hospital ", missing her dog" Patient did very poorly with physical therapy Noted to off balance, increased fatigue,-recommended rehab, Patient refused for rehab referral, does not want home health visiting nurse at home PT Feels that she is getting too much better once she returns back to her old surrounding daughter present at bedside, mentions Patient lives with her , and one level house, Daughter checks on them frequently Feels comfortable that her mother will recover better once getting back to home Patient is discharged home today accompanied by her daughter, Will call [facility] to arrange hospital follow-up as soon as possible Patient and daughter consult for increased fluid intake to prevent dehydration, call family physician or bring to ER with any evidence of recurrence of symptoms: Increased weakness, confusion, any fever or chills Physical Exam Constitutional: WD/WN, vitals as above + ill appearing; no acute distress Eyes: PERRL, conjunctivae normal, anicteric sclerae ENMT: external ear and nose normal, oropharynx normal Neck: trachea midline, no thyromegaly Respiratory: normal respiratory effort, lungs clear to auscultation Cardiovascular: RRR, no murmur, no edema Gastrointestinal (Abdomen): normal bowel sounds, soft, nontender, no hepatosplenomegaly Musculoskeletal: no cyanosis or clubbing, extremities motor strength 5/5 Skin: no rashes, warm and dry Neurologic: PERRL, EOMI, accommodation nl, no face palsy, no dysarthria Psychiatric: A+Ox3, euthymic affect Results & Data Vital Signs (Past 12 Hours) Vital Signs Temp Pulse Pulse Resp BP BP Pulse Ox 07/20/18 16:49 78 07/20/18 15:37 37.4 C 82 18 95/56 L 91 07/20/18 14:50 95 07/20/18 11:19 37.1 C 74 18 110/65 94 07/20/18 11:15 07/20/18 07:12 71 07/20/18 07:10 37.6 C H 88 18 106/59 L 94 Pulse Ox 07/20/18 16:49 07/20/18 15:37 07/20/18 14:50 07/20/18 11:19 07/20/18 11:15 95 07/20/18 07:12 07/20/18 07:10
[2018-07-21] MEDS ORDERED: DOXYCYCLINE HYCLATE 100 MG CAP PO SCH (06:00)
--- NOTE | 2018-07-21 10:41 | Discharge Summary ---
Date of Service July 21, 2018 Admission HPI Per Admitting Provider This is a 72-year-old female who has a significant PMH of CAD, HTN, HLD, CKD stage III, hypothyroidism, COPD, osteoporosis, chronic low back pain who presents to [facility] secondary to joint aches, weakness, nausea, vomiting for 3 days. Daughter at bedside. Symptoms started Wednesday after patient attended a picnic. She is otherwise been her normal state of health. Symptoms initially started with joint ache, fatigue, malaise, generalized weakness, nausea, emesis x2, generalized abdominal ache off-and-on. She had one episode of diarrhea yesterday. Symptoms persisted therefore daughter brought patient to ED for evaluation. No known sick contacts. She did not eat any bad food. Denies fever, chills, sweats but otherwise feels cold more than usual. Denies lightheadedness, dizziness, upper respiratory symptoms, cough, chest pain, shortness of breath, palpitations, hemoptysis, hematemesis, dysuria, increased urgency or frequency with urination, hematuria, melena, hematochezia. Over the past 2 to 3 days her appetite has been poor with significantly decreased p.o. intake. She did not take any of her medications today. Never had anything like this in the past. [place] but denies any known tick or insect bites. No rashes. Daughter also feels she has been more confused today. Principal Diagnosis Generalized weakness, dehydration, hyponatremia, hypokalemia, low magnesium: Resolved prior to discharge Discharge Data Allergies Allergy/AdvReac Type Severity Reaction Status Date / Time atorvastatin [From Lipitor] Allergy Rash Unverified 07/19/18 10:46 Cephalosporins Allergy Vomiting Unverified 07/19/18 10:46 meloxicam Allergy Rash Unverified 07/19/18 10:46 moxifloxacin [From Avelox] Allergy Rash Unverified 07/19/18 10:46 oxycodone Allergy Rash Unverified 07/19/18 10:46 pravastatin [From Pravachol] Allergy Muscle Pain Unverified 07/19/18 10:46 tramadol [From Ultram] Allergy Rash Unverified 07/19/18 10:46 STREPTOKINASE PORK HEPARIN Allergy Unknown Unknown Uncoded 07/19/18 10:46 AUGMENTIN AdvReac Unknown VOMITING Uncoded 02/07/04 11:00 Consultations 07/19/18 13:14 ED Decision to Admit Stat 07/19/18 15:58 Consult Case Management - Discharge Planning Routine Ordered Studies 07/19/18 10:27 CT abd pelvis IV con only Stat Hospital Course (1) Weakness: This is a 72-year-old female who has a significant PMH of CAD, HTN, HLD, CKD stage III, hypothyroidism, COPD, osteoporosis, chronic low back pain who presents to [facility] secondary to joint aches, weakness, nausea, vomiting for 3 days. In ED pt CBC unremarkable except low normal plt 131, BMP significant for Na 130, K 3.4, Cr 1.26, phos 2.2 and mag 1.[address] abd/pelvis not significant for any acute abnormality, there was question of a mild urinary bladder wall thickening with perivesicular stranding but urine appears negative for infection In ED patient received IV fluid bolus, potassium chloride 40 M EQ, K-Phos, 2 g mag IV, IV Zofran and Pepcid Pt sx probably in setting of acute dehydration and symptomatic hyponatremia Cause of acute dehydration unknown as pt was in her normal state of health 3 days ago: ? viral illness, lyme/anaplasma, does not appear to be infection, no s/sx of sepsis Symptoms significantly improved after IV hydration, correction of electrolytes deficit Lyme titer negative Anaplasmosis serology pending Patient treated with IV doxycycline empirically, Will change to p.o. doxycycline complete total 7 days of course PT OT evaluation requested, appreciate input, recommend rehab Patient refused Wants to return home (2) Metabolic encephalopathy: Presented with confusion, increased fatigue and lethargy, Secondary to dehydration, electrolyte derangement: Hypokalemia/low magnesium/hyponatremia No evidence of focal neurological deficit, Mental status improved to approximate baseline with IV fluid resuscitation According to daughter, patient did showed evidence of cognitive/memory decline, forgetfulness for the past few months, Was significantly worsened last 2 days prior to admission, patient could not recall where she is at, Doing much better today than last few weeks Getting more anxious or restless while being in hospital Daughter feels comfortable that patient will do well after returning home (3) Dehydration: Due to poor p.o. intake, nausea vomiting, for the last 2 to 3 days Report of small loose bowel movement prior to admission, no bowel movement noted during hospital stay patient given IV fluid resuscitation, Electrolytes deficit (sodium /potassium /mag) corrected Patient reports of improved appetite No GI symptoms patient is counseled repeatedly Patient is counseled repeatedly to keep up with enough fluid intake (4) Acute hyponatremia: serum na 130 Secondary to dehydration, poor p.o. intake and GI loss Sodium level improved with IV hydration, (5) Electrolyte abnormality: Hypomagnesemia, hypokalemia,: Secondary to poor p.o. intake nausea vomiting for last 2 to 3 days replaced, Repeat labs within normal limits (6) CKD (chronic kidney disease) stage 3, GFR 30-59 ml/min: Slight elevation of BUN/creatinine ratio secondary to dehydration Resolved with IV hydration renal function at baseline (7) CAD (coronary artery disease): No acute chest pain or shortness of breath Continue metoprolol, ASA Hold Praluent -daughter notes recent increase to 150 mg SQ [id number] 1 month ago (8) HTN (hypertension): Blood pressure stable On metoprolol, hydrochlorothiazide was On hold on admission in the setting of dehydration Will be resumed on discharge (9) HLD (hyperlipidemia): on Praluent -daughter notes recent increase to 150 mg SQ [id number] 1 month ago Kept on hold during hospital stay, can be resumed on discharge (10) Hypothyroidism: 07/08 TSH was 5.62, T4 normal at 1.22 Continue levothyroxine (11) COPD (chronic obstructive pulmonary disease) with emphysema: No signs or symptoms of acute exacerbation Patient is not on any inhaled steroid or LABA/BENJI (12) Depression with anxiety: Continue Effexor and Xanax mood stable (13) DVT prophylaxis: Heparin SQ q12hr Disposition: Patient is discharged home today, refused home health visiting nurse home PT Follow up: Follow-up with [facility] family physician Dr. Kavita Ng within a week for hospital follow-up Total Time Total Time Spent Total Time Spent (In Minutes): Approximate 45 minutes Total Time Includes: Examination of the Patient, Discharge Planning and Medication Reconciliation Discharge Plan Discharge Items Patient Disposition: Home - Self-Care Reason For Visit: VOMITING,WEAKNESS,NOT EATING Discharge Diagnosis: Generalized weakness, dehydration , hyponatremia , hypokalemia -resolved Discharge Goals: Decrease discomfort Activity: Resume your previous activity Non-emergency contact: Primary Care Provider Call non-emergency contact if: you have any medication questions Follow-up/Referrals: Kavita Sharpe DO [Primary Care Provider] - Diet: Heart Healthy Addtl Provider Instructions: HOSPITAL FOLLOW UP WITH DR KAVITA PADILLA IN 1 WEEK Prescriptions: New doxycycline hyclate 100 mg Capsule 100 mg PO BID 5 Days Qty: 10 RF: 0 Continued multivitamin Tablet 1 tab PO DAILY RF: 0 venlafaxine 37.5 mg capsule,extended release 24hr 37.5 mg PO DAILY RF: 0 ascorbic acid (vitamin C) [Vitamin C] 1,000 mg Tablet Extended Release 1,000 mg PO DAILY RF: 0 aspirin [Aspirin Low Dose] 81 mg Tablet,Delayed Release (Dr/Ec) 81 mg PO DAILY RF: 0 levothyroxine [Levoxyl] 75 mcg tablet 75 mcg PO DAILY RF: 0 alprazolam 0.25 mg Tablet 0.25 mg PO BID RF: 0 metoprolol tartrate 50 mg tablet 50 mg PO BID RF: 0 nitroglycerin 0.4 mg Tablet, Sublingual 0.4 mg sublingual UD RF: 0 hydrochlorothiazide 25 mg tablet 25 mg PO DAILY RF: 0 clotrimazole [Lotrimin AF] 1 % Cream 1 applic TOPICAL BID RF: 0 Restasis 0.05 % Dropperette 1 drp OPHTHALMIC (EYE) BID RF: 0 cholecalciferol (vitamin D3) [Vitamin D3] 2,000 unit Tablet 2,000 unit PO DAILY RF: 0 Praluent Pen 150 mg/mL pen injector 150 mg subcut . DIRECTED RF: 0 Stand-Alone Forms: [facility] Discharge Orders: Discharge Order (Routine); Ordered 07/20/18 Ordered By: Sol Serna Admission Data Admit Date/Time: 07/19/18 14:15 Attending Provider: Sol Serna Admit Provider: Sol Serna Primary Care Provider: Kavita Sharpe Other Providers: Sol Serna Service: Telemetry Other Interventions: Discharge Summary Assessment (RN) Last Done: 07/20/18 19:50 DC Date/Time DO NOT enter until pt leaves facility: 07/20/18 20:30
--- NOTE | 2018-07-21 10:48 | Hospitalist Progress Note ---
Date of Service July 21, 2018 Subjective Attending addendum: Patient was discharged yesterday 07/20/2018 Received call from patient's daughter Onelia, phone number [phone] voicing concerned that patient appears to be More forgetful, more confused Having profuse diarrhea since this morning leading to stool incontinence, unable to get up from toilet for ongoing liquid bowel movement Patient did not had diarrhea yesterday during her hospital stay Daughter is updated, high risk for patient to be severely dehydrated, develop with acute renal failure without appropriate treatment for diarrhea Patient needs to be evaluated by a physician as soon as possible Daughter is asked to call [facility] clinic-as patient needs to be evaluated today With any recurrence of symptoms: Fever /chills /worsening of confusion and lethargy, patient should be brought to the ER Message to patient's family physician Dr. Kavita Ng given update regarding patient's condition [facility] scheduling: Patient needs appointment with family physician - there was no hospital appointment available for today or over the weekend Scheduling will call patient's family as an earlier appointment is available Sol Serna MD
[2018-07-24 20:53] LABS: Anaplasma phagocytophila IgM <1:20 (<1:20)
== END 2018-07-20 20:30 | disposition home or self-care (01) | DRG 640 ==
LOC: ED 10:08 → 2W 14:15
DX: J44.9 Chronic obstructive pulmonary disease, unspecified; N18.3 Chronic kidney disease, stage 3 (moderate); E87.1 Hypo-osmolality and hyponatremia; M81.0 Age-related osteoporosis without current pathological fracture; E03.9 Hypothyroidism, unspecified; E86.0 Dehydration; I25.10 Atherosclerotic heart disease of native coronary artery without angina pectoris; R53.1 Weakness; E78.5 Hyperlipidemia, unspecified; Z79.82 Long term (current) use of aspirin; Z88.8 Allergy status to other drugs, medicaments and biological substances; Z88.5 Allergy status to narcotic agent; F41.8 Other specified anxiety disorders; Z88.1 Allergy status to other antibiotic agents; I12.9 Hypertensive chronic kidney disease with stage 1 through stage 4 chronic kidney disease, or unspecified chronic kidney disease; M54.5 Low back pain; G93.41 Metabolic encephalopathy; E87.8 Other disorders of electrolyte and fluid balance, not elsewhere classified